=== PATIENT | female | born 1995 | race Caucasian/White ===

== ENCOUNTER 2021-11-13 21:50 | Emergency (ER) | payer MEDICAID ==
[~2021-11-13] VITALS: Ht 160 cm; Wt 53.1 kg
[2021-11-13 22:06] VITALS: BP_SYST 112
--- NOTE | 2021-11-13 22:23 | NUR ---
Patient to ER bed G[facility]BO[facility] 2 to [facility] for evaluation. Side rails up. Report given to Sandrine NICOLE(reg) by Magui NICOLE(reg).
[2021-11-13] MEDS ORDERED: MORPHINE 4 MG INJ. 4 MG/ML VIAL IVP ONE (22:30)
[2021-11-13] MEDS ORDERED: ONDANSETRON HCL 4 MG/2 ML VIAL IVP ONE (22:30)
[2021-11-13] MEDS ORDERED: NACL 0.9% 1,000 ML IV ONE (22:30)
--- NOTE | 2021-11-13 22:40 | NUR ---
ER Dr.De Plaza at bedside examining patient.
--- NOTE | 2021-11-13 23:00 | NUR ---
Pt taken to US for imaging via W/C.
--- NOTE | 2021-11-13 23:00 | NUR ---
# 20 gauge angiocath placed to L AC. Use of asceptic technique. Opsite placed over site. Blood return noted. Flushed with 10 cc of normal saline. No evidence of infiltration noted. Patient tolerated well.
--- NOTE | 2021-11-13 23:10 | NUR ---
Returned from imaging, tolerated well.
[2021-11-13 23:48] LABS: BILIRUBIN,URINE NEGATIVE (NEGATIVE); BLOOD, URINE NEGATIVE (NEGATIVE); COLOR,URINE YELLOW (YELLOW); GLUCOSE,URINE NEGATIVE (NEGATIVE); KETONES,URINE 1+ (NEGATIVE); LEUKOCYTE ESTERASE ,URINE NEGATIVE (NEGATIVE); NITRITE, URINE NEGATIVE (NEGATIVE); PH,URINE 7.5 (5.0-8.0); PROTEIN URINE NEGATIVE (NEGATIVE); UROBILINOGEN,URINE 0.2 (0.2-1.0)
[2021-11-13 23:49] LABS: CLARITY/URINE SLIGHTLY CLOUDY (CLEAR)
[2021-11-13 23:50] LABS: BACTERIA,URINE RARE /HPF (None Seen); RBC,URINE 0-3 /HPF (0-3); WBC,URINE 0-3 /HPF (0-3)
[2021-11-13 23:53] LABS: URINE AMORPHOUS PHOSPHATES 1+ /HPF (None Seen)
[2021-11-14 00:17] LABS: ALBUMIN 3.6 g/dL (3.4-4.8); CALCIUM 9.4 mg/dL (8.4-11.0); CREATININE 0.95 mg/dL (0.55-1.30); POTASSIUM 3.5 mmol/L (3.5-5.1); TOTAL BILIRUBIN 0.6 mg/dL (0.0-1.0)
[2021-11-14] MEDS ORDERED: ONDA-8 TL (01:14)
[2021-11-14] MEDS ORDERED: PEG4000S4 PO (01:14)
[2021-11-14] MEDS ORDERED: ACET-2634 PO (01:14)
--- NOTE | 2021-11-14 01:21 | NUR ---
Patient given written and verbal discharge instructions and verbalizes understanding. ER MD Beaver discussed with patient the results and treatment provided. Patient in stable condition. ID arm band removed. IV catheter removed intact and dressing applied, no active bleeding. Prescription sent to pharmacy of choice. Patient educated on pain management and to follow up with PMD. Pain Scale 0/10. Opportunity for questions provided and answered. Medication side effect fact sheet provided.
[2021-11-14 01:33] VITALS: BP_SYST 118
[2021-11-14 10:27] LABS: HEMOGLOBIN 13.4 g/dL (12.0-16.0); MEAN CORPUSCULAR VOLUME 89 fL (79.0-98.0)
[2021-11-14 10:28] LABS: MEAN CORPUSCULAR HEMOGLOBIN 30 pg (27-31); MEAN CORPUSCULAR HGB CONC 34 % (32-36); PLATELET COUNT (AUTO) 333 K/uL (130-430); RED CELL DISTRIBUTION WIDTH 13.3 % (9.0-15.0); WHITE BLOOD COUNT (AUTO) 8.6 K/uL (4.8-10.8)
[2021-11-14 10:30] LABS: BASOPHILS % (MANUAL) 0 % (0-2); EOSINOPHILS % (MANUAL) 21 % (0-7); LYMPHOCYTES % (MANUAL) 22 % (20-46); MONOCYTES % (MANUAL) 7 % (0-11)
== END 2021-11-14 01:21 | disposition home or self-care (01) ==
LOC: SED 21:50
DX: K59.00 Constipation, unspecified (principal); R10.30 Lower abdominal pain, unspecified; Z79.899 Other long term (current) drug therapy
CPT/HCPCS: 99284; 96374; 76830; 76857; 96361; 96375; 85027; 80053; 81000; 85007; 87086; 36415; 81025; 74176; 76376; J2405; J2270; J7030; 84703; 85025